=== PATIENT | female | born 1955 | race Caucasian/White ===

== ENCOUNTER 2017-09-07 08:38 | Day surgery (SDC) | payer BC ==
[~2017-09-07 08:38] MED LIST: Lactated Ringers 1,000 ML IV SCH; Lidocaine 1%/Sod Bicarbonate in NS 8.4% 1 ML Syringe IV PRN; Sodium Chloride 0.9% 10 ML Syringe FLUSH PRN
[2017-09-07] MEDS ORDERED: Propofol 200 MG/20 ML SDV ONE (09:01)
[2017-09-07] MEDS ORDERED: Midazolam 1 MG/ML 2 ML SDV ONE (09:01)
[2017-09-07] MEDS ORDERED: fentaNYL 100 MCG/2 ML SDV ONE (09:01)
[2017-09-07] MEDS ORDERED: Lidocaine 1% 4 ML ONE (09:02)
--- NOTE | 2017-09-07 11:59 | PCM.OPNOTE ---
- General Post-Op/Procedure Note Date of Surgery/Procedure: 09/07/17 Operative Procedure(s): 1. Anoscopy. 2. 3 column hemorrhoidal banding. 3. Left lateral Botox injection 60 units Findings: 1. Posterior anal fissure with sentinel tag 2. Anterior anal fissure 3. 3 column slightly prolapsing internal hemorrhoids Pre Op Diagnosis: 1. Nonhealing anal fissure recurrent. 2. Bright red rectal bleeding with known history of internal hemorrhoids Post-Op Diagnosis: 1. Anterior and posterior anal fissures. 2. 3 column internal hemorrhoids Anesthesia Technique: MAC, Moderate Sedation Primary Surgeon: Wes Irby Pathology: None EBL in mLs: 0 Complications: None Condition: Good Free Text/Narrative:: After adequate IV sedation and analgesia was obtained with monitoring the patient was placed in the prone jackknife position with her buttocks taped. Perianal inspection revealed 3 column prolapse nonbleeding internal hemorrhoids. Digital rectal examination reveals slightly increased sphincter tone. Anoscopy revealed the 3 column hemorrhoids. There was a posterior and anterior anal fissure. The posterior fissure had a sentinel tag. There were no fistulous openings or mass lesions seen from anoscopy. With the anal retractor in place I then placed rubber bands above the dentate line in the left lateral, right anterior, and right posterior hemorrhoidal columns. Once this was done I injected 60 units of Botox into the left lateral aspect of the internal anal sphincter. The patient tolerated the procedure well and there were no procedural complications.
[2017-09-07 13:06] VITALS: BP 145/73
== END 2017-09-07 12:55 | disposition home or self-care (01) ==
LOC: JD.SDS 08:38
PROVIDERS: ATTEND Surgery
DX: K60.2 Anal fissure, unspecified (principal); K64.8 Other hemorrhoids; F41.9 Anxiety disorder, unspecified; K21.9 Gastro-esophageal reflux disease without esophagitis; I10 Essential (primary) hypertension; E78.00 Pure hypercholesterolemia, unspecified; E87.6 Hypokalemia; K58.9 Irritable bowel syndrome, unspecified; Z88.2 Allergy status to sulfonamides; Z88.5 Allergy status to narcotic agent; Z91.013 Allergy to seafood; Z91.018 Allergy to other foods; Z79.899 Other long term (current) drug therapy; Z90.49 Acquired absence of other specified parts of digestive tract; Z90.710 Acquired absence of both cervix and uterus; Z90.721 Acquired absence of ovaries, unilateral; Z90.89 Acquired absence of other organs; Z98.890 Other specified postprocedural states
CPT/HCPCS: 46505; 46946; J0585; J2250; J3010; J7050; J7120; 00902; J2704